=== PATIENT | female | born 1985 | race Caucasian/White ===

== ENCOUNTER 2023-11-02 20:57 | Emergency (ER) | payer OTHER ==
[2023-11-02 21:10] VITALS: BP 121/79; PULSE 68; RESP 19; TEMP 98.1; BMI 31.3
[2023-11-02] MEDS ORDERED: ACETAMINOPHEN 325 MG TABLET (FP) ONE (21:37)
[2023-11-02] MEDS: ACETAMINOPHEN 500 MG TABLET (FP) PO ONE (21:45)
[2023-11-03] MEDS ORDERED: DIPHTH,PERTUSS(ACELL),TET 0.5 ML DISP.SYRIN IM ONE (01:33)
[2023-11-03] MEDS ORDERED: KETOROLAC TROMETHAMINE 30 MG/1 ML VIAL ONE (01:33)
[2023-11-03] MEDS: DIPHTH,PERTUSS(ACELL),TET 0.5 ML DISP.SYRIN IM ONE (01:40)
[2023-11-03] MEDS: KETOROLAC TROMETHAMINE 30 MG/1 ML VIAL IM ONE (01:41)
== END 2023-11-03 01:44 | disposition home or self-care (01) ==
LOC: JER 20:57
PROC: 3E0133Z Introduction of Anti-inflammatory into Subcutaneous Tissue, Percutaneous Approach (ICD-10-PCS; principal; 2023-11-03)
PROC: 3E0234Z Introduction of Serum, Toxoid and Vaccine into Muscle, Percutaneous Approach (ICD-10-PCS; 2023-11-03)
DX: M25.511 Pain in right shoulder (principal); M25.521 Pain in right elbow; V03.10XA Pedestrian on foot injured in collision with car, pick-up truck or van in traffic accident, initial encounter; Y92.410 Unspecified street and highway as the place of occurrence of the external cause; Z23 Encounter for immunization
CPT/HCPCS: 70450-TC; 72125-TC; 72170-TC-FY; 73030-TC-RT-FY; 73060-TC-RT-FY; 73070-TC-RT-FY; 90715; 99284-25